=== PATIENT | female | born 1995 ===

== ENCOUNTER 2024-03-08 05:12 | Inpatient (IN) ==
[2024-03-08 06:06] LABS: Hematocrit 30.9 % (35-45); Hemoglobin 10.4 g/dL (11.5-14.3); Mean Corpuscular Hemoglobin 29.4 pg (27-33); Mean Corpuscular Hgb Conc 33.7 g/dL (31-36); Mean Corpuscular Volume 87.2 fL (80-97); Mean Platelet Volume 11.7 fL (7.5-11.2); Platelet Count 161 10^3/uL (150-450); Red Blood Count 3.54 10^6/uL (3.63-4.92); Red Cell Distribution Width 14.7 % (12-17)
[2024-03-08 06:36] LABS: ABS Basophils 0.1 10^3/uL (0.0-0.1); ABS Eosinophils 0.1 10^3/uL (0.0-0.5); ABS Lymphocytes 3.1 10^3/uL (1.0-4.8); ABS Monocytes 0.7 10^3/uL (0.0-0.9); ABS Neutrophils 5.1 10^3/uL (1.5-7.6); ABS Nucleated RBC 0.02 10^3/ul; Eosinophil % 0.6 %; Large Platelets Present; Lymphocyte % 34.2 %; Nucleated Red Blood Cells % 0.3 %/100WBC (0.0-0.8)
[2024-03-08] MEDS ORDERED: Phenylephrine 40 mcg/mL 10mL (400mcg) SYRINGE ONE (07:17)
[2024-03-08] MEDS ORDERED: ceFAZolin VIAL 2 GM in NS 0.9% 100 ml BAG 100 ML IVPB ONE (08:38)
[2024-03-08] MEDS: Sodium Citrate/Citric Acid LIQ 15 ML UDC PO ONE (08:38)
[2024-03-08] MEDS ORDERED: fentaNYL 100 mcg/2 ml 50 MCG/ML VIAL ONE (08:39)
[2024-03-08] MEDS ORDERED: Morphine PF AMP (0.5MG/ML) 5 MG/10 ML AMP ONE (08:39)
[2024-03-08] MEDS: ceFAZolin 2 GM/50 ML BAG IV ONE (09:06)
[2024-03-08] MEDS ORDERED: Oxytocin 10 UNITS/ML 1 ML VIAL ONE ×2 (09:57→10:14)
[2024-03-08] MEDS ORDERED: Ondansetron 4 mg VIAL 2 MG/ML 2 ml VIAL ONE (09:57)
[2024-03-08] MEDS ORDERED: Dibucaine 1% OINT 28.35 GM TUBE PR PRN (10:51)
[2024-03-08] MEDS ORDERED: Witch Hazel PAD JAR TOPICAL PRN (10:51)
[2024-03-08] MEDS ORDERED: Glycerin ADULT 2.4 gm SUPP PR PRN (10:51)
[2024-03-08] MEDS ORDERED: Lactated Ringers 1000 ml BAG 1,000 ML IV SCH (11:00)
[2024-03-08] MEDS ORDERED: Naloxone 0.4 mg VIAL 0.4 mg/ml 1 ml VIAL IV PRN (11:01)
[2024-03-08] MEDS ORDERED: Naloxone 0.4 mg VIAL 0.4 mg/ml 1 ml VIAL IV PUSH PRN (11:02)
[2024-03-08] MEDS ORDERED: Ondansetron 4 mg VIAL 2 MG/ML 2 ml VIAL IV PRN (11:02)
[2024-03-08] MEDS ORDERED: Metoclopramide 5 MG/ML VIAL (10 mg) IV PRN (11:02)
[2024-03-08] MEDS: Acetaminophen IV 1 GM/100ML 1,000 MG/100 ML BAG IV PRN (12:04)
[2024-03-08] MEDS: Oxytocin in LR 20,000 MILLI.UNIT/1,000 ML BAG IV ONE (17:33)
[2024-03-09 06:40] LABS: ABS Basophils 0.1 10^3/uL (0.0-0.1); ABS Eosinophils 0.1 10^3/uL (0.0-0.5); ABS Lymphocytes 1.7 10^3/uL (1.0-4.8); ABS Monocytes 0.6 10^3/uL (0.0-0.9); ABS Neutrophils 7.1 10^3/uL (1.5-7.6); Eosinophil % 0.6 %; Hematocrit 26.2 % (35-45); Hemoglobin 8.8 g/dL (11.5-14.3); Lymphocyte % 17.7 %; Mean Corpuscular Hemoglobin 29.3 pg (27-33); Mean Corpuscular Hgb Conc 33.6 g/dL (31-36); Mean Corpuscular Volume 87.2 fL (80-97); Mean Platelet Volume 10.9 fL (7.5-11.2); Platelet Count 142 10^3/uL (150-450); Red Cell Distribution Width 14.4 % (12-17); White Blood Count 9.5 10^3/uL (3.8-11.8)
[2024-03-11 08:43] VITALS: BP 132/86
== END 2024-03-11 16:32 | disposition home or self-care (01) | DRG 540 ==
LOC: MCHOB 05:12
PROVIDERS: ADMIT Obstetrics & Gynecology; ATTEND Obstetrics & Gynecology